=== PATIENT | male | born 1985 | race American Indian/Alaskan Native ===

== ENCOUNTER 2017-09-26 21:39 | Emergency (ER) | payer SELFPAY ==
[2017-09-26 22:23] LABS: Basophils % (Auto) 0.6 % (0.0-1.8); Eosinophils # (Auto) 0.1 K/mm3 (0.0-0.4); Eosinophils % (Auto) 1.3 % (0.0-4.3); Hematocrit 47.3 % (35.5-45.6); Lymphocytes # (Auto) 2.5 K/mm3 (1.2-5.4); Lymphocytes % (Auto) 43.4 % (13.4-35.0); Mean Corpuscular HGB Conc 34 % (32-34); Mean Corpuscular Hemoglobin 30 pg (28-32); Mean Corpuscular Volume 89 fl (84-94); Monocytes # (Auto) 0.5 K/mm3 (0.0-0.8); Monocytes % (Auto) 8.6 % (0.0-7.3); Platelet Count 282 K/mm3 (140-440); Red Cell Distribution Width 14.2 % (13.2-15.2)
[2017-09-26 22:50] VITALS: BP 113/81
[2017-09-26 23:26] LABS: Bilirubin,Urine NEG (Negative); Blood,Urine NEG (Negative); Color,Urine Yellow (Yellow); Hyaline Casts,Urine 1 /LPF; Mucus,Urine 2+ /HPF; Protein,Urine <15 mg/dL mg/dL (Negative)
[2017-09-26 23:34] LABS: Alanine Aminotransferase 16 units/L (7-56); Albumin 4.3 g/dL (3.9-5); BUN/Creatinine Ratio 13; Blood Urea Nitrogen 9 mg/dL (9-20); Calcium 9.4 mg/dL (8.4-10.2); Hemolysis Index 8; Lipase 12 units/L (13-60)
--- NOTE | 2017-09-26 23:51 | Emergency Department Report ---
HPI - General Chief Complaint: Abdominal Pain Time Seen by Provider: 09/26/17 22:59 - HPI HPI: 32-year-old [place] male coming in with periumbilical abdominal pain starting on this morning patient had a history of diabetic gastroparesis. he states that her pain is accompanied by nausea, vomiting but no urinary symptoms or diarrhea. Patient has not taking any medication at home for his symptoms. he denies any exacerbating factors. he denies any alleviating factors. he denies any recent travel, or unusual foods. he denies any sick contacts. MD Complaint: abdominal pain -: Gradual Location: Periumbilical Radiation: none Migration to: no migration Severity scale (0 -10): 4 Quality: sharp Improves With: nothing Associated Symptoms: nausea, vomiting, chills ED Past Medical Hx - Past Medical History Hx Hypertension: Yes Hx Diabetes: Yes Additional medical history: peripheral neuropathy in bilateral feet, Gastroparesis - Surgical History Past Surgical History?: No - Social History Smoking Status: Never Smoker Substance Use Type: None, Marijuana - Medications Home Medications: Home Medications Medication Instructions Recorded Confirmed Last Taken Type Glimepiride [Amaryl] 4 mg PO QAM #30 tablet 11/15/13 12/29/13 12/29/13 Rx Gabapentin 300 mg PO TID #30 capsule 12/01/13 12/29/13 12/29/13 Rx Lisinopril [Zestril TAB] 10 mg PO QDAY #30 tablet 12/01/13 12/29/13 12/29/13 Rx HYDROcodone/APAP 10-325 [[place] 1 each PO Q6HR PRN #16 tablet 12/29/13 Unknown Rx 10/325] Methocarbamol [Robaxin] 750 mg PO Q8H PRN #14 tablet 12/29/13 Unknown Rx Gabapentin 300 mg PO TID #60 capsule 03/22/14 Unknown Rx HYDROcodone/ACETAMINOPHEN [Lortab 1 each PO Q8H #12 tablet 03/22/14 Unknown Rx 5-325 mg Tablet] Insulin NPH Hum/Reg Insulin Hm 25 unit SQ QAM #25 ml 03/22/14 Unknown Rx [Humulin 70/30 Kwikpen] methOCARBAMOL [Robaxin] 500 mg PO BID #20 tab 03/22/14 Unknown Rx Ibuprofen [Motrin 800 MG tab] 800 mg PO Q8H #30 tablet 10/29/14 Unknown Rx Sulfamethoxazole/Trimethoprim 1 each PO Q12H #14 tablet 10/29/14 Unknown Rx [Bactrim Ds] metroNIDAZOLE [Flagyl] 500 mg PO Q12H #14 tablet 10/29/14 Unknown Rx Cephalexin [Keflex] 500 mg PO Q12HR #14 cap 01/30/15 Unknown Rx Ibuprofen [Motrin 800 MG tab] 800 mg PO TID PRN #30 tablet 01/30/15 Unknown Rx Dicyclomine [Bentyl] 10 mg PO QID #30 capsule 09/26/17 Unknown Rx ED Review of Systems ROS: Stated complaint: ABD PAIN Other details as noted in HPI Comment: All other systems reviewed and negative Endocrine: denies: excessive sweating, flushing Gastrointestinal: abdominal pain, nausea Genitourinary: denies: urgency, dysuria Physical Exam - Physical Exam Vital Signs: Vital Signs 09/26/17 09/26/17 09/26/17 21:49 21:52 22:48 Temperature 98.3 F 98.3 F 98.5 F Pulse Rate 101 H 101 H 91 H Respiratory 18 16 16 Rate Blood Pressure 123/90 Blood Pressure 113/81 [Left] Blood Pressure 123/90 [Right] O2 Sat by Pulse 97 97 98 Oximetry Physical Exam: Gen. alert and oriented 3 in no distress Head atraumatic normocephalic Eyes PERR LA EOMI Chest regular rate and rhythm normal S1-S2 lungs clear bilaterally Abdomen soft nondistended Back no point tenderness Neuro no focal deficit. Psych normal mood. ED Course Vital Signs 09/26/17 09/26/17 09/26/17 21:49 21:52 22:48 Temperature 98.3 F 98.3 F 98.5 F Pulse Rate 101 H 101 H 91 H Respiratory 18 16 16 Rate Blood Pressure 123/90 Blood Pressure 113/81 [Left] Blood Pressure 123/90 [Right] O2 Sat by Pulse 97 97 98 Oximetry ED Medical Decision Making - Lab Data Result diagrams: 09/26/17 22:10 09/26/17 22:10 Critical care attestation.: If time is entered above; I have spent that time in minutes in the direct care of this critically ill patient, excluding procedure time. ED Disposition Clinical Impression: Abdominal pain Qualifiers: Abdominal location: generalized Qualified Code(s): R10.84 - Generalized abdominal pain Disposition: DC-01 TO HOME OR SELFCARE Is pt being admited?: No Does the pt Need Aspirin: No Condition: Stable Instructions: Acute Nausea and Vomiting (ED), Abdominal Pain (ED) Prescriptions: Dicyclomine [Bentyl] 10 mg PO QID #30 capsule Referrals: PRIMARY CARE, [Primary Care Provider] - 3-5 Days
== END 2017-09-27 00:03 | disposition home or self-care (01) ==
LOC: ED 21:39
DX: R10.84 Generalized abdominal pain (principal); R11.2 Nausea with vomiting, unspecified; R68.83 Chills (without fever); I10 Essential (primary) hypertension; E11.9 Type 2 diabetes mellitus without complications; F12.10 Cannabis abuse, uncomplicated; Z91.013 Allergy to seafood
CPT/HCPCS: 36415; 80053; 81001; 83690; 85025; 99283

== ENCOUNTER 2021-06-19 10:50 | Outpatient (CLI) | payer OTHER ==
--- NOTE | 2021-06-19 11:50 | XRay Report ---
LUMBAR SPINE HISTORY: COMPARISON: None. TECHNIQUE: 3 view(s) of the lumbar spine obtained. FINDINGS: Vertebrae: Normal alignment. No fracture or significant abnormality. Disc Spaces:No significant abnormality. Facet Joints:No significant abnormality. Prevertebral Soft Tissues:No significant abnormality. Additional findings: None. IMPRESSION: Unremarkable lumbar spine radiographs. No evidence of acute osseous injury or significant degenerativ e change. Signer Name: John Dean MD Signed: 06/19/2021 11:46 AM Workstation Name: [id number]
--- NOTE | 2021-06-19 11:51 | XRay Report ---
LEFT ANKLE HISTORY: Pain. COMPARISON: None. TECHNIQUE: 4 views of the right ankle obtained. FINDINGS: Bones: No fracture or dislocation. Joint spaces: Maintained. Soft tissues: No significant abnormality. Additional findings: None. IMPRESSION: Left ankle without evidence of acute osseous injury. No significant degenerative change. Signer Name: John Dean MD Signed: 06/19/2021 11:47 AM Workstation Name: [id number]
--- NOTE | 2021-06-19 11:52 | XRay Report ---
LEFT FOOT HISTORY: COMPARISON: None. TECHNIQUE: 3 views of the right foot were obtained. FINDINGS: Bones: No fracture or dislocation. Joint spaces: Maintained. Soft tissues: No significant abnormality. Additional findings: None. IMPRESSION: Left foot without evidence of acute osseous injury. No significant degenerative change. Signer Name: John Dean MD Signed: 06/19/2021 11:47 AM Workstation Name: [id number]
== END 2021-06-19 10:51 | disposition home or self-care (01) ==
LOC: XRAY 10:50
PROVIDERS: ATTEND Internal Medicine
DX: M54.50 Low back pain, unspecified (principal); M25.572 Pain in left ankle and joints of left foot
CPT/HCPCS: 72100

== ENCOUNTER 2021-06-23 04:58 | Inpatient (IN) | payer SELFPAY ==
[~2021-06-23 04:58] MED LIST: ASPIRIN 325 MG TAB ONE; HEPARIN 10,000 UNITS/10 ML VIAL ONE; HEPARIN/ 0.45% NACL - 25,000 UNITS/500 ML DRIP ONE; NITROGLYCERIN 0.4 MG TAB SUBL SL ONE; SODIUM CHLORIDE 0.9% 1000 ML IV SOLN ONE
[2021-06-23] MEDS ORDERED: ASPIRIN 325 MG TAB PO ONE (05:20)
[2021-06-23] MEDS ORDERED: NITROGLYCERIN 2% OINT 1 GM TP ONE (05:20)
[2021-06-23] MEDS ORDERED: HEPARIN 1,000 UNIT/1 ML VIAL IV ONE (05:22)
[2021-06-23] MEDS ORDERED: ONDANSETRON 4 MG/2 ML INJ IV ONE (05:22)
[2021-06-23] MEDS ORDERED: CLOPIDOGREL 300 MG TAB PO ONE (05:22)
--- NOTE | 2021-06-23 05:24 | Emergency Department Report ---
ED Chest Pain HPI - General Chief Complaint: Chest Pain Stated Complaint: DIFF BREATHING PUI?: No Time Seen by Provider: 06/23/21 05:06 Source: patient Mode of arrival: Ambulatory Limitations: No Limitations - History of Present Illness Initial Comments: Patient is a 36-year-old male who presents emergency room with complaints of chest pain and shortness of breath. Patient started approximately 30 minutes ago. Patient states the pain is a 4 out of 10. Patient states the pressure. Patient states his chest pain and shortness of breath are better with rest and worse with exertion. Patient states he has a past medical history of diabetes, hypertension, hyperlipidemia and he actively smokes 1 pack of cigarettes per day. Patient denies recent travel. Patient denies recent international travel. Patient denies exposure to the novel coronavirus. Patient denies sick contacts. Patient denies fever and chills. Patient denies cough. Patient denies diarrhea. Patient denies coming in contact with anybody with symptoms of the novel coronavirus. MD Complaint: chest pain -: Sudden - Related Data Previous Rx's Medication Instructions Recorded Last Taken Type Glimepiride [Amaryl] 4 mg PO QAM #30 tablet 11/15/13 12/29/13 Rx Gabapentin 300 mg PO TID #30 capsule 12/01/13 12/29/13 Rx lisinopriL [Zestril TAB] 10 mg PO QDAY #30 tablet 12/01/13 12/29/13 Rx HYDROcodone/APAP 10-325 [[place] 1 each PO Q6HR PRN #16 tablet 12/29/13 Unknown Rx 10/325] methOCARBAMOL [Robaxin] 750 mg PO Q8H PRN #14 tablet 12/29/13 Unknown Rx Gabapentin 300 mg PO TID #60 capsule 03/22/14 Unknown Rx HYDROcodone/ACETAMINOPHEN [Lortab 1 each PO Q8H #12 tablet 03/22/14 Unknown Rx 5-325 mg Tablet] Insulin NPH Hum/Reg Insulin Hm 25 unit SQ QAM #25 ml 03/22/14 Unknown Rx [Humulin 70/30 Kwikpen] methOCARBAMOL [Robaxin] 500 mg PO BID #20 tab 03/22/14 Unknown Rx Ibuprofen [Motrin 800 MG tab] 800 mg PO Q8H #30 tablet 10/29/14 Unknown Rx Sulfamethoxazole/Trimethoprim 1 each PO Q12H #14 tablet 10/29/14 Unknown Rx [Bactrim Ds] metroNIDAZOLE [Flagyl] 500 mg PO Q12H #14 tablet 10/29/14 Unknown Rx Ibuprofen [Motrin 800 MG tab] 800 mg PO TID PRN #30 tablet 01/30/15 Unknown Rx cephALEXin [Keflex] 500 mg PO Q12HR #14 cap 01/30/15 Unknown Rx Dicyclomine [Bentyl] 10 mg PO QID #30 capsule 09/26/17 Unknown Rx Allergies Allergy/AdvReac Type Severity Reaction Status Date / Time shrimp AdvReac Vomiting Uncoded 09/28/13 08:40 Heart Score - HEART Score History: Highly suspicious EKG: Significant ST-depression Age: < 45 Risk factors: > 3 risk factors or hx of atherosclerotic disease Troponin: < normal limit (Pending) HEART Score: 6 - EKG Read Time Time EKG Completed: 05:00 EKG Read Time: 05:04 ED Review of Systems ROS: Stated complaint: DIFF BREATHING Other details as noted in HPI Constitutional: denies: chills, fever Eyes: denies: eye pain, eye discharge, vision change ENT: denies: ear pain, throat pain Respiratory: see HPI, shortness of breath. denies: cough, wheezing Cardiovascular: as per HPI, chest pain. denies: palpitations Endocrine: no symptoms reported Gastrointestinal: denies: abdominal pain, nausea, diarrhea Genitourinary: denies: urgency, dysuria Musculoskeletal: denies: back pain, joint swelling, arthralgia Skin: denies: rash, lesions Neurological: denies: headache, weakness, paresthesias Psychiatric: denies: anxiety, depression Hematological/Lymphatic: denies: easy bleeding, easy bruising ED Past Medical Hx - Past Medical History Previous Medical History?: Yes Hx Hypertension: Yes Hx Heart Attack/AMI: No Hx Diabetes: Yes Additional medical history: peripheral neuropathy in bilateral feet, Gastroparesis, hyperlipidemia - Surgical History Past Surgical History?: No - Family History Family history: no significant - Social History Smoking Status: Current Every Day Smoker Substance Use Type: Marijuana - Medications Home Medications: Home Medications Medication Instructions Recorded Confirmed Last Taken Type Glimepiride [Amaryl] 4 mg PO QAM #30 tablet 11/15/13 12/29/13 12/29/13 Rx Gabapentin 300 mg PO TID #30 capsule 05/12/29/13 12/29/13 Rx lisinopriL [Zestril TAB] 10 mg PO QDAY #30 tablet 12/01/13 12/29/13 12/29/13 Rx HYDROcodone/APAP 10-325 [[place] 1 each PO Q6HR PRN #16 tablet 12/29/13 Unknown Rx 10/325] methOCARBAMOL [Robaxin] 750 mg PO Q8H PRN #14 tablet 12/29/13 Unknown Rx Gabapentin 300 mg PO TID #60 capsule 03/22/14 Unknown Rx HYDROcodone/ACETAMINOPHEN [Lortab 1 each PO Q8H #12 tablet 03/22/14 Unknown Rx 5-325 mg Tablet] Insulin NPH Hum/Reg Insulin Hm 25 unit SQ QAM #25 ml 03/22/14 Unknown Rx [Humulin 70/30 Kwikpen] methOCARBAMOL [Robaxin] 500 mg PO BID #20 tab 03/22/14 Unknown Rx Ibuprofen [Motrin 800 MG tab] 800 mg PO Q8H #30 tablet 10/29/14 Unknown Rx Sulfamethoxazole/Trimethoprim 1 each PO Q12H #14 tablet 10/29/14 Unknown Rx [Bactrim Ds] metroNIDAZOLE [Flagyl] 500 mg PO Q12H #14 tablet 10/29/14 Unknown Rx Ibuprofen [Motrin 800 MG tab] 800 mg PO TID PRN #30 tablet 01/30/15 Unknown Rx cephALEXin [Keflex] 500 mg PO Q12HR #14 cap 01/30/15 Unknown Rx Dicyclomine [Bentyl] 10 mg PO QID #30 capsule 09/26/17 Unknown Rx ED Physical Exam - General Limitations: No Limitations General appearance: alert, in distress, other (Diaphoretic) - Head Head exam: Present: atraumatic, normocephalic - Eye Eye exam: Present: normal appearance - ENT ENT exam: Present: mucous membranes moist - Neck Neck exam: Present: normal inspection - Respiratory Respiratory exam: Present: respiratory distress. Absent: wheezes, rales - Cardiovascular Cardiovascular Exam: Present: regular rate, normal rhythm. Absent: systolic murmur, diastolic murmur, rubs, gallop - GI/Abdominal GI/Abdominal exam: Present: soft, normal bowel sounds - Rectal Rectal exam: Present: deferred - Extremities Exam Extremities exam: Present: normal inspection - Back Exam Back exam: Present: normal inspection - Neurological Exam Neurological exam: Present: alert, oriented X3 - Psychiatric Psychiatric exam: Present: normal affect, normal mood - Skin Skin exam: Present: warm, intact, normal color, diaphoretic. Absent: rash ED Course Vital Signs 06/23/21 06/23/21 06/23/21 05:15 05:17 05:31 Temperature 97.2 F L 97.8 F Pulse Rate 119 H 127 H 137 H Respiratory 20 20 Rate Blood Pressure 149/101 122/84 Blood Pressure 126/86 [Left] O2 Sat by Pulse 92 93 Oximetry 06/23/21 06/23/21 06/23/21 05:37 05:42 05:47 Temperature Pulse Rate 137 H 127 H 118 H Respiratory 36 H 37 H 22 Rate Blood Pressure 125/87 130/80 Blood Pressure 124/90 125/87 130/80 [Left] O2 Sat by Pulse Oximetry 06/23/21 06/23/21 05:53 05:54 Temperature Pulse Rate 123 H 114 H Respiratory 23 35 H Rate Blood Pressure 130/80 128/82 Blood Pressure [Left] O2 Sat by Pulse 94 93 Oximetry - Reevaluation(s) Reevaluation #1: Patient to be transferred from the MAC area to an acute care room in the ER. 06/23/21 05:12 Reevaluation #2: Pain is unchanged. 06/23/21 05:26 Reevaluation #3: Patient continues to be hypoxic and the patient increased from 3 L to 4 L via nasal cannula. Patient oxygen is slowly improving. Patient still complaining of chest pain. 06/23/21 05:35 Reevaluation #4: Patient still complaining of chest pain. Patient will be given another 2 mg of morphine. 06/23/21 05:42 Patient states his chest pain is improving. 06/23/21 05:48 Reevaluation #5: Patient transferred to the [facility]. I discussed all results with patient. I discussed plan of care with patient. Patient agrees with plan of care and admission. Patient admitted to the [facility]. 06/23/21 05:54 - Consultations Consultation #1: I discussed the case with Dr. Sierra and Dr. Sierra agrees that this is a STEMI and the STEMI team will be activated. 06/23/21 05:10 GENARO score - Genaro Score Age > 65: (0) No Aspirin use within the Past 7 Days: (1) Yes 3 or more CAD Risk Factors: (1) Yes 2 or more Angina events in past 24 hrs: (0) No Known CAD with more than 50% Stenosis: (0) No Elevated Cardiac Markers: (0) No ST Deviation Greater than 0.5mm: (1) Yes GENARO Score: 3 ED Medical Decision Making - Lab Data Result diagrams: 06/23/21 05:29 06/23/21 05:29 - EKG Data -: EKG Interpreted by Me EKG shows normal: sinus rhythm, intervals, QRS complexes Rate: tachycardia - EKG Data Interpretation: acute ID - Radiology Data Radiology results: report reviewed XR chest 1V ap INDICATION / CLINICAL INFORMATION: Chest Pain. COMPARISON: 10/29/2020 FINDINGS: SUPPORT DEVICES: None. HEART /PULMONARY VASCULATURE: No significant abnormality. LUNGS / PLEURA: Moderate right greater than left bilateral pulmonary airspace opacities. No sizable pleural effusion. No pneumothorax. ADDITIONAL FINDINGS: No significant additional findings. IMPRESSION: Right greater than left bilateral pulmonary airspace opacities, suspicious for pneumonia. - Medical Decision Making Patient is a 36-year-old male who presents emergency room with complaints of chest pain and shortness of breath. Patient had insidious onset of 30 minutes. Patient is high risk due to his past medical history and being active smoker. Patient has history of diabetes, hyperlipidemia, hypertension. Patient also has a strong family history of cardiac events. After initial evaluation, I reviewed the EKG and sent the EKG to the on-call interventionalists. The wholesale representative agreed that this is a STEMI and wants the cath team activated. The [employer] [facility] [employer] was activated immediately. Patient had a STEMI protocol set up. Patient was given Plavix, aspirin, heparin bolus and heparin drip, morphine and nitro. Patient's vital signs were monitored entire time. Patient was hypoxic and placed on 2 L of oxygen and his oxygen improved. Patient's pain improved with morphine. Patient had a chest x-ray which showed pneumonia. Patient transferred to the [facility] [employer] [facility] to the care of the cardiology and cath team. Critical care time documented due to the multiple reassessments, prolonged time at the bedside, interpretation of diagnostics and labs. - Differential Diagnosis Chest pain, STEMI, ACS, pneumonia, Critical Care Time: Yes Critical care time in (mins) excluding proc time.: 35 Critical care attestation.: If time is entered above; I have spent that time in minutes in the direct care of this critically ill patient, excluding procedure time. Critical Care Time: 35 minutes ED Disposition Clinical Impression: Shortness of breath Chest pain Qualifiers: Chest pain type: unspecified Qualified Code(s): R07.9 - Chest pain, unspecified STEMI (ST elevation myocardial infarction) Qualifiers: Involved coronary artery: unspecified coronary artery Qualified Code(s): I21.3 - ST elevation (STEMI) myocardial infarction of unspecified site Pneumonia Qualifiers: Pneumonia type: due to unspecified organism Laterality: unspecified laterality Lung location: unspecified part of lung Qualified Code(s): J18.9 - Pneumonia, unspecified organism Respiratory failure Qualifiers: Chronicity: acute Respiratory failure complication: hypoxia Qualified Code(s): J96.01 - Acute respiratory failure with hypoxia Disposition: 09 ADMITTED INPATIENT Is pt being admited?: Yes Does the pt Need Aspirin: No Condition: Critical Instructions: Bacterial Pneumonia (ED) Time of Disposition: 06:15
[2021-06-23] MEDS ORDERED: MORPHINE 2 MG/1 ML INJ ONE ×2 (05:36→05:42)
[2021-06-23] MEDS: NITROGLYCERIN 0.4 MG TAB SUBL SL PRN ×3 (05:37→05:47)
[2021-06-23] MEDS ORDERED: MORPHINE 2 MG/1 ML INJ IV ONE ×2 (05:37→05:42)
[2021-06-23 05:50] LABS: Basophils # (Auto) 0.1 K/mm3 (0.0-0.1); Basophils % (Auto) 0.6 % (0.0-1.8); Eosinophils # (Auto) 0.1 K/mm3 (0.0-0.4); Eosinophils % (Auto) 0.7 % (0.0-4.3); Hematocrit 44.8 % (35.5-45.6); Hemoglobin 14.8 gm/dl (11.8-15.2); Lymphocytes # (Auto) 2.9 K/mm3 (1.2-5.4); Lymphocytes % (Auto) 29.4 % (13.4-35.0); Mean Corpuscular HGB Conc 33 % (32-34); Mean Corpuscular Volume 95 fl (84-94); Monocytes # (Auto) 0.7 K/mm3 (0.0-0.8); Monocytes % (Auto) 6.7 % (0.0-7.3); Platelet Count 294 K/mm3 (140-440); Red Blood Count 4.72 M/mm3 (3.65-5.03)
--- NOTE | 2021-06-23 05:50 | XRay Report ---
XR chest 1V ap INDICATION / CLINICAL INFORMATION: Chest Pain. COMPARISON: 10/29/2020 FINDINGS: SUPPORT DEVICES: None. HEART /PULMONARY VASCULATURE: No significant abnormality. LUNGS / PLEURA: Moderate right greater than left bilateral pulmonary airspace opacities. No sizable p leural effusion. No pneumothorax. ADDITIONAL FINDINGS: No significant additional findings. IMPRESSION: Right greater than left bilateral pulmonary airspace opacities, suspicious for pneumonia. Signer Name: Bobby Rhodes MD Signed: 06/23/2021 5:45 AM Workstation Name: [id number]
[2021-06-23] MEDS ORDERED: HEPARIN/NS 5000 UNIT/500ML 1,000 ML IR ONE (05:54)
[2021-06-23] MEDS ORDERED: VERAPAMIL 5 MG/2 ML INJ ONE (05:55)
[2021-06-23] MEDS ORDERED: MIDAZOLAM 2 MG/2 ML INJ ONE (05:55)
[2021-06-23] MEDS ORDERED: LIDOCAINE (2%) 20 MG/1 ML VIAL 20 ML MDV INFILTRATI ONE ×2 (05:55→06:20)
[2021-06-23] MEDS ORDERED: NITROGLYCERIN SYRINGE 3 ML ONE (05:55)
[2021-06-23] MEDS ORDERED: fentaNYL 100 MCG/2 ML INJ ONE (05:55)
[2021-06-23] MEDS ORDERED: HEPARIN 10,000 UNITS/10 ML VIAL ONE (05:55)
[2021-06-23] MEDS ORDERED: SODIUM CHLORIDE 0.9% 1000 ML 1,000 ML ONE (05:58)
[2021-06-23] MEDS ORDERED: HEPARIN/ 0.45% NACL DRIP 25,000 UNIT/500 ML BAG IV SCH (06:00)
[2021-06-23 06:05] LABS: INR 0.87 (0.87-1.13); Partial Thromboplastin Time 28.9 Sec. (24.2-36.6)
[2021-06-23 06:07] LABS: Creatine Kinase MB 4.3 ng/mL (0.0-4.0)
[2021-06-23 06:08] LABS: Alanine Aminotransferase 22 units/L (7-56); Albumin 4.1 g/dL (3.9-5); BUN/Creatinine Ratio 10; Blood Urea Nitrogen 11 mg/dL (9-20); Calcium 9.6 mg/dL (8.4-10.2); Hemolysis Index 10
[2021-06-23] MEDS ORDERED: diphenhydrAMINE 50 MG/ML VIAL ONE (06:11)
[2021-06-23] MEDS ORDERED: methylPREDNISolone Sod Succinate 125 MG/2 ML INJ ONE (06:11)
[2021-06-23] MEDS ORDERED: MIDAZOLAM 2 MG/2 ML INJ IV ONE (06:19)
[2021-06-23] MEDS ORDERED: HEPARIN 10,000 UNITS/10 ML VIAL IV ONE (06:22)
[2021-06-23] MEDS ORDERED: NITROGLYCERIN 600 MCG/3 ML SYRINGE UD ONE (06:22)
[2021-06-23] MEDS ORDERED: HEPARIN/NS 5000 UNIT/500ML 500 ML IR ONE (06:25)
[2021-06-23] MEDS ORDERED: HYDROcodone/ACETAMINOPHEN 5-325 MG TAB PO PRN (07:09)
[2021-06-23] MEDS ORDERED: traMADol 50 MG TAB PO PRN (07:09)
[2021-06-23 07:11] LABS: HDL Cholesterol 39 mg/dL (40-59); LDL Cholesterol,Direct 130 mg/dL (50-130)
--- NOTE | 2021-06-23 07:14 | Consultation ---
History of Present Illness Consult date: 06/23/21 Requesting physician: RUTHIE SYED Consult reason: chest pain History of present illness: Patient is a 36-year-old male with a history of hypertension diabetes mellitus who presented to the hospital with spontaneous onset of shortness of breath and chest pain. In the emergency room patient was noted to be in moderate distress. Had shortness of breath mild cough. Was given morphine with some relief. EKG showed diffuse ST-T wave changes. Patient reports no prior cardiac problems. No recent cardiac work-up. No significant family history of CAD. Continues to have this mild to moderate chest pain associated with shortness of breath and diaphoresis. Chest pain substernal pressure-like sensation. No particular radiation of pain no particular aggravating factors improving with morphine. Past History Past Medical History: diabetes, hypertension, hyperlipidemia Social history: no significant social history Family history: no significant family history Medications and Allergies Allergies Allergy/AdvReac Type Severity Reaction Status Date / Time shrimp AdvReac Vomiting Uncoded 09/28/13 08:40 Home Medications Medication Instructions Recorded Confirmed Last Taken Type Glimepiride [Amaryl] 4 mg PO QAM #30 tablet 11/15/13 12/29/13 12/29/13 Rx Gabapentin 300 mg PO TID #30 capsule 12/01/13 12/29/13 12/29/13 Rx lisinopriL [Zestril TAB] 10 mg PO QDAY #30 tablet 12/01/13 12/29/13 12/29/13 Rx HYDROcodone/APAP 10-325 [[place] 1 each PO Q6HR PRN #16 tablet 12/29/13 Unknown Rx 10/325] methOCARBAMOL [Robaxin] 750 mg PO Q8H PRN #14 tablet 12/29/13 Unknown Rx Gabapentin 300 mg PO TID #60 capsule 03/22/14 Unknown Rx HYDROcodone/ACETAMINOPHEN [Lortab 1 each PO Q8H #12 tablet 03/22/14 Unknown Rx 5-325 mg Tablet] Insulin NPH Hum/Reg Insulin Hm 25 unit SQ QAM #25 ml 03/22/14 Unknown Rx [Humulin 70/30 Kwikpen] methOCARBAMOL [Robaxin] 500 mg PO BID #20 tab 03/22/14 Unknown Rx Ibuprofen [Motrin 800 MG tab] 800 mg PO Q8H #30 tablet 04/11/15 Unknown Rx Sulfamethoxazole/Trimethoprim 1 each PO Q12H #14 tablet 10/29/14 Unknown Rx [Bactrim Ds] metroNIDAZOLE [Flagyl] 500 mg PO Q12H #14 tablet 10/29/14 Unknown Rx Ibuprofen [Motrin 800 MG tab] 800 mg PO TID PRN #30 tablet 01/30/15 Unknown Rx cephALEXin [Keflex] 500 mg PO Q12HR #14 cap 01/30/15 Unknown Rx Dicyclomine [Bentyl] 10 mg PO QID #30 capsule 09/26/17 Unknown Rx Active Meds: Active Medications Hydrocodone Bitart/Acetaminophen (Hydrocodone/Acetaminophen 5-325 Mg Tab) 1 each PO Q4H PRN PRN Reason: Pain, Moderate (4-6) Heparin Sodium/Sodium Chloride (Heparin/ 0.45% Nacl-25,000 Unit/500 Ml) 25,000 unit in 500 mls @ 18 mls/hr IV TITRATE MERON; Protocol Last Admin: 06/23/21 05:33 Dose: 15 units/kg/hr, 18.098 mls/hr Documented by: Sodium Chloride (Nacl 0.45% 1000 Ml) 1,000 mls @ 75 mls/hr IV DIRECT MERON Nitroglycerin (Nitroglycerin 0.4 Mg Tab Subl) 0.4 mg SL .Q5MIN PRN PRN Reason: Chest Pain Last Admin: 06/23/21 05:47 Dose: 0.4 mg Documented by: Tramadol HCl (Tramadol 50 Mg Tab) 50 mg PO Q4H PRN PRN Reason: Pain, Mild (1-3) Review of Systems All systems: negative (As mentioned in H&P) Physical Examination Vital Signs Temp Pulse Resp BP Pulse Ox 97.2 F L 119 H 20 149/101 92 06/23/21 05:15 06/23/21 05:15 06/23/21 05:15 06/23/21 05:15 06/23/21 05:15 General appearance: mild distress HEENT: Positive: Jaundice Neck: Positive: trachea midline Cardiac: Positive: Reg Rate and Rhythm Lungs: Positive: clear to auscultation Neuro: Positive: Grossly Intact Abdomen: Positive: Unremarkable Male genitourinary: Positive: deferred Results 06/23/21 05:29 06/23/21 05:29 Cardiac Enzymes 06/23/21 06/23/21 Range/Units 05:29 05:29 AST 17 (5-40) units/L CK-MB (CK-2) 4.3 H (0.0-4.0) ng/mL Coagulation 06/23/21 Range/Units 05:29 PT 12.8 (12.2-14.9) Sec. INR 0.87 (0.87-1.13) APTT 28.9 (24.2-36.6) Sec. CBC 06/23/21 Range/Units 05:29 WBC 10.0 (4.5-11.0) K/mm3 RBC 4.72 (3.65-5.03) M/mm3 Hgb 14.8 (11.8-15.2) gm/dl Hct 44.8 (35.5-45.6) % Plt Count 294 (140-440) K/mm3 Lymph # (Auto) 2.9 (1.2-5.4) K/mm3 Villalba # (Auto) 0.7 (0.0-0.8) K/mm3 Eos # (Auto) 0.1 (0.0-0.4) K/mm3 Baso # (Auto) 0.1 (0.0-0.1) K/mm3 Comprehensive Metabolic Panel 06/23/21 Range/Units 05:29 Sodium 138 (137-145) mmol/L Potassium 3.9 (3.6-5.0) mmol/L Chloride 98.3 (98-107) mmol/L Carbon Dioxide 21 L (22-30) mmol/L BUN 11 (9-20) mg/dL Creatinine 1.1 (0.8-1.3) mg/dL Glucose 419 H (75-100) mg/dL Calcium 9.6 (8.4-10.2) mg/dL AST 17 (5-40) units/L ALT 22 (7-56) units/L Alkaline Phosphatase 194 H (35-129) units/L Total Protein 8.5 H (6.3-8.2) g/dL Albumin 4.1 (3.9-5) g/dL EKG interpretations - EKG Sinus rhythms and dysrhythmias: sinus tachycardia (With diffuse ST-T wave changes and ST elevation in aVR) Assessment and Plan Impression Chest pain concerning for unstable angina Diabetes mellitus Hypertension Hyperlipidemia Sinus tachycardia Plan Patient has already been given aspirin and heparin. Patient will be taken emergently to the [facility] Coord[facility]. Further treatment based on cardiac cath findings
[2021-06-23] MEDS ORDERED: HYDROmorphone 1 MG/1 ML INJ IV PRN (07:45)
[2021-06-23] MEDS ORDERED: MORPHINE 2 MG/1 ML INJ IV PRN (07:45)
[2021-06-23] MEDS ORDERED: DEXTROSE 50% IN WATER (25GM) 50 ML SYRINGE IV PRN (07:45)
[2021-06-23] MEDS ORDERED: METOCLOPRAMIDE 10 MG/2 ML INJ IV PRN (07:45)
[2021-06-23] MEDS ORDERED: ACETAMINOPHEN 325 MG TAB PO PRN (07:45)
[2021-06-23] MEDS ORDERED: SODIUM CHLORIDE 0.45% 1000 ML 1,000 ML IV SCH (08:00)
[2021-06-23] MEDS ORDERED: INSULIN REGULAR, HUMAN 100 UNITS/1 ML SUB-Q SCH (10:00)
[2021-06-23 11:42] LABS: Alanine Aminotransferase 26 units/L (7-56); Albumin 3.4 g/dL (3.9-5); BUN/Creatinine Ratio 21; Blood Urea Nitrogen 17 mg/dL (9-20); Calcium 8.7 mg/dL (8.4-10.2); Hemolysis Index 20
[2021-06-23 11:47] VITALS: BP 145/81
[2021-06-23 11:47] LABS: Creatine Kinase MB 42.8 ng/mL (0.0-4.0)
[2021-06-23 12:14] LABS: Hematocrit 42.3 % (35.5-45.6); Hemoglobin 13.6 gm/dl (11.8-15.2); Mean Corpuscular HGB Conc 32 % (32-34); Mean Corpuscular Volume 95 fl (84-94); Platelet Count 235 K/mm3 (140-440); Red Blood Count 4.45 M/mm3 (3.65-5.03); Red Cell Distribution Width 14.1 % (13.2-15.2)
--- NOTE | 2021-06-23 12:18 | Event Note ---
Date: 06/23/21 36-year-old male with past medical history of type 2 diabetes presenting to our facility with chest pain. In the emergency department he was noted to have ST T changes. Brand Director activated and Dr. Sierra performed left heart cath. Patient was found to have severe left main disease. Intra-aortic balloon pump was inserted. Discussed patient case with Dr. Sierra who states that patient would be eventually transferred to [facility] for for CABG procedure. However [facility] at the time did not have a bed available. Internal medicine service was subsequently called to assist with medical management while patient is being monitored in ICU. Patient was subsequently transferred to ICU for monitoring and rapid outsole stitcher Dr. Beck was notified. Patient remained on heparin drip while here in our ICU. Vital signs were stable at the time of my encounter. Patient had no acute complaints. Patient was eventually transferred this afternoon to [facility]. Problems: #CAD with severe left main disease #Nicotine use #Diabetes mellitus #Hypertension #Hyperlipidemia #Sinus tachycardia +60 min cct
[2021-06-23 13:08] LABS: Band Neutrophils # (Manual) 0.2 K/mm3; Total Cells Counted 100
[2021-06-23 13:09] LABS: Platelet Estimate Consistent w Auto; RBC Morphology Normal
--- NOTE | 2021-06-24 09:39 | Electrocardiograph Report ---
[facility] Test Date: 2021-06-23 Test Time: 04:59:33 Pat Name: CARLEE AQUINO Department: Room: A253 1 Gender: M Fashion Merchandiser: : 1985 Requested By: MARTA TROY III Order Number: [id number] Reading MD: Ervin Garcia Measurements Intervals [place] Rate: 115 P: 72 CO: 131 QRS: 82 QRSD: 103 T: -79 QT: 339 QTc: 470 Interpretive Statements Sinus tachycardia Repol abnrm suggests ischemia, diffuse leads No previous ECG available for comparison Electronically Signed On 06-24-2021 9:38:36 EST by Ervin Garcia
--- NOTE | 2021-07-06 11:23 | Cardiac Catherization Report ---
DATE OF SERVICE: 06/23/2021 PROCEDURES PERFORMED: 1. Selective left and right coronary angiogram. 2. Left ventriculogram. 3. Successful placement of intraaortic balloon pump. OPERATORS: Claudio Sierra M.D. INDICATIONS: Unstable angina/acute coronary syndrome. SEDATION: Moderate sedation was given under continuous hemodynamic monitoring. Sedation was given under my supervision with Versed and fentanyl. SEDATION START TIME: 6:19 a.m. SEDATION END TIME: 6:45 a.m. A total of 26 minutes of sedation time. PROCEDURE DETAILS: 1. The patient was prepped and draped in a sterile fashion after informed consent. 2. The right groin was anesthetized using local Lidocaine infiltration. 3. The right radial artery was entered using the Seldinger technique, followed by the placement of a 6-Paraguayan sheath. 4. Selective left and right coronary angiography was performed using 6-[place] Nini catheters. Angiograms were done in multiple projections. 5. Selective left ventricular angiography was done using a 6-[place] pigtail catheter. Left ventricular angiography was performed in the right anterior oblique projection. 6. The catheters were withdrawn, the sheath removed, and hemostasis was achieved. 7. The patient was transferred to the post cardiac catheterization unit in stable condition. There were no complications, equipment malfunction, or technical difficulties. FINDINGS: 1. HEMODYNAMICS: AO 116/88. LV 116/16. LVEDP was 16 mmHg. 2. Left ventriculogram done in 30 degrees FUENTES and CAMRYN projection shows reduced LV systolic function, EF 35-40% with global hypokinesis. ANGIOGRAM DETAILS: 1. The left main is a large caliber vessel, has a distal 80% stenosis. 2. The LAD is a medium caliber vessel. It is subtotally occluded in the mid portion. Diagonal 1 and diagonal 2 have significant 80-90% stenosis. Faint collaterals are seen filling the distal LAD. 3. The circumflex is a large, dominant vessel. Has an ostial 90% stenosis. 4. The RCA is a nondominant vessel with severe diffuse disease. Faint collaterals are seen filling the distal LAD. IMPRESSION: 1. Significant triple vessel disease involving the left main, ostial circumflex and total occlusion of the LAD. 2. Ischemic cardiomyopathy, ejection fraction 35-40%. PLAN: 1. Proceed with intraaortic balloon pump insertion. 2. Transfer the patient for emergency bypass surgery evaluation. 3. Intraaortic balloon pump. PROCEDURE DETAILS: The patient was already sedated. Femoral access was obtained under fluoroscopic guidance using the standard protocol. Intraaortic balloon pump was then inserted using the standard protocol and placed on 1:1. Fluoroscopic guidance was used to insert an appropriate placement of the balloon pump. The balloon pump was then sutured in place. IMPRESSION: 1. Triple vessel disease. 2. Successful placement of balloon pump. PLAN: 1. Restart IV heparin. 2. Emergency transfer for bypass surgery evaluation. TID: [id number] RECEIPT: [id number] MERA/ELVIRA/DYLAN
== END 2021-06-23 12:30 | disposition home or self-care (01) | DRG 270 ==
LOC: ED 04:58 → CC1 08:21
PROVIDERS: ADMIT Internal Medicine; ATTEND Internal Medicine
PROC: 5A02210 Assistance with Cardiac Output using Balloon Pump, Continuous (ICD-10-PCS; principal; 2021-06-23)
PROC: 4A023N7 Measurement of Cardiac Sampling and Pressure, Left Heart, Percutaneous Approach (ICD-10-PCS; 2021-06-23)
PROC: B2111ZZ Fluoroscopy of Multiple Coronary Arteries using Low Osmolar Contrast (ICD-10-PCS; 2021-06-23)
PROC: B2151ZZ Fluoroscopy of Left Heart using Low Osmolar Contrast (ICD-10-PCS; 2021-06-23)
DX: I21.3 ST elevation (STEMI) myocardial infarction of unspecified site (principal); J18.9 Pneumonia, unspecified organism; J96.01 Acute respiratory failure with hypoxia; I25.119 Atherosclerotic heart disease of native coronary artery with unspecified angina pectoris; E11.9 Type 2 diabetes mellitus without complications; I10 Essential (primary) hypertension; F17.200 Nicotine dependence, unspecified, uncomplicated; E78.5 Hyperlipidemia, unspecified; Z20.822 Contact with and (suspected) exposure to COVID-19
CPT/HCPCS: 33967; 36415; 71045; 80053; 80061; 82550; 82553; 82962; 83735; 83880; 84484; 85007; 85025; 85610; 85730; 86850; 86900; 86901; 93005; 93458; 94760; 99291; G0378; J1815; J3490; Q0162; Q9967; C1894; J1200; J1644; J2250; J2270; J2405; J2930; J3010; J7030; U0003